=== PATIENT | male | born 1955 | race Caucasian/White ===

== ENCOUNTER 2017-03-27 15:41 | Emergency (ER) | payer BC ==
[2017-03-27] MEDS ORDERED: Aspirin Low Dose CHEW TAB* 81 MG PO ONE (16:32)
[2017-03-27 17:07] LABS: Hematocrit 40 % (42-52); Hemoglobin 13.5 g/dl (14.0-18.0); Mean Corpuscular HGB Conc 34 g/dl (31-36); Mean Corpuscular Hemoglobin 28 pg (27-31); Mean Corpuscular Volume 84 fL (80-94); Mean Platelet Volume 8 um3 (7.4-10.4); Red Blood Count 4.78 10^6/ul (4.0-5.4); Red Cell Distribution Width 14 % (10.5-15); White Blood Count 5.5 10^3/ul (3.5-10.8)
--- NOTE | 2017-03-27 17:08 | RAD ---
INDICATION: Chest pain. Pneumonia. COMPARISON: April 16, 2015 TECHNIQUE: An AP portable view obtained at 1650 hours is submitted. FINDINGS: Bones/Soft Tissues: There are no acute bony findings. Cardiomediastinal: The correct silhouette is mildly prominent. Lungs: There are no infiltrates. Pleura: There are no pleural effusions. Other: None IMPRESSION: MILDLY PROMINENT CARDIAC SILHOUETTE.
[2017-03-27 17:24] LABS: Albumin 4.4 g/dL (3.2-5.2); BUN/Creatinine Ratio 11.5 (8-20); Calcium 9.7 mg/dL (8.6-10.3); EGFR African American 102.4 (>60); EGFR Non-African American 79.6 (>60); Globulin 2.5 g/dL (2-4); Potassium 3.6 mmol/L (3.5-5.0); Total Bilirubin 0.6 mg/dL (0.2-1.0); Total Protein 6.9 g/dL (6.4-8.9)
[2017-03-27 17:25] LABS: Troponin I 0.01 ng/mL (<0.04)
--- NOTE | 2017-03-27 19:01 | ED ---
Allen Schaefer Angela, scribed for Jb Quinn MD on 03/27/17 at 1613 . HPI Chest Pain - HPI Summary HPI Summary: This pt is a 61 y/o male [facility] c/o chest discomfort x1-2 weeks, more present at 0800 today. He states his chest discomfort is subtle and today it felt more present. Pt reports it feels like it did in 2012 when he had 2 stents placed for a STEMI. Pt denies diaphoresis, SOB, cold, rhinorrhea, abd pain, LE pain. He denies tobacco use. Pt notes seeing Dr. Johnson every 6 months. Pt takes baby ASA everyday, metoprolol, lipitor, and diovan. - History of Current Complaint Chief Complaint: EDChestPainROMI Time Seen by Provider: 03/27/17 16:02 Hx Obtained From: Patient Onset/Duration: Started Days Ago Timing: Lasting Days Pain Intensity: 0 Chest Pain Location: Mid Sternal Chest Pain Radiates: No Associated Signs and Symptoms: Positive: Chest Pain - discomfort. Negative: Headaches, Numbness, Tingling, Weakness, Shortness of Breath, Syncope, Fever, Chills, Lightheadedness, Calf Pain/Swelling Related History: Similar Episode/Dx as: - 4 years ago when he had a STEMI - Allergy/Home Medications Allergies/Adverse Reactions: Allergies Allergy/AdvReac Type Severity Reaction Status Date / Time MARILY Inhibitors Allergy Coughing Verified 03/27/17 15:46 PMH/Surg Hx/FS Hx/Imm Hx Endocrine/Hematology History: Denies: Hx Anticoagulant Therapy, Hx Blood Disorders, Hx Blood Transfusions, Hx Bone Marrow Disease, Hx Diabetes, Hx Systemic Lupus Erythematosus, Hx Sickle Cell Disease, Hx Thyroid Disease, Hx Anemia, Hx Unexplained Bleeding, Other Endocrine/Hematological Disorders Cardiovascular History: Reports: Hx Angina - december 12 sensation in chest and biceps, non painful, Hx Angioplasty, Hx Coronary Artery Disease, Hx Hypercholesterolemia, Hx Hypertension - ON MEDS, Other Cardiovascular Problems/ Disorders - 2 CARDIAC STENTS 12/2012 Denies: Hx Aneurysm, Hx Auto Implanted Cardiovert Defib, Hx Cardiac Arrest, Hx Cardiomegaly, Hx Congenital Heart Disease, Hx Congestive Heart Failure, Hx Deep Vein Thrombosis, Hx Hypotension, Hx Myocardial Infarction, Hx Pacemaker/ICD , Hx Peripheral Vascular Disease, Hx Rheumatic Fever, Hx Syncope, Hx Valvular Heart Disease Respiratory History: Denies: Hx Asthma, Hx Chronic Bronchitis, Hx Chronic Obstructive Pulmonary Disease (COPD), Hx Cystic Fibrosis, Hx Lung Cancer, Hx Pleural Effusion, Hx Pneumonia, Hx Pulmonary Edema, Hx Pulmonary Embolism, Hx Seasonal Allergies, Hx Sleep Apnea, Other Respiratory Problems/Disorders GI History: Denies: Hx Cirrhosis, Hx Crohn's Disease, Hx Diverticulosis, Hx Gall Bladder Disease, Hx Gastroesophageal Reflux Disease, Hx Gastrointestinal Bleed, Hx Hiatal Hernia, Hx Irritable Bowel, Hx Jaundice, Hx Obstructive Bowel, Hx Ileostomy, Hx Pyloric Stenosis, Hx Ulcer, Other GI Disorders History: Denies: Hx Acute Renal Failure, Hx Benign Prostatic Hyperplasia, Hx Chronic Renal Failure, Hx Dialysis, Hx Kidney Infection, Hx Kidney Stones, Hx Renal Disease, Other Problems/Disorders Musculoskeletal History: Reports: Hx Arthritis, Hx Orthopedic Injury - left meniscus tear around 1999, Other Musculoskeletal History - CURRENT TEAR LEFT ACHILLES Denies: Hx Back Problems, Hx Bursitis, Hx Congenital Bone Abnormalities, Hx Fibromyalgia, Hx Gout, Hx Osteoporosis, Hx Scoliosis, Hx Tendonitis Sensory History: Denies: Hx Cataracts, Hx Contacts or Glasses, Hx Eye Injury, Hx Eye Prosthesis, Hx Glaucoma, Hx Macular Degeneration, Hx Vision Problem, Hx Deafness , Hx Hearing Aid, Hx Hearing Problem, Other Sensory Impairments Opthamlomology History: Denies: Hx Cataracts, Hx Contacts or Glasses, Hx Eye Injury, Hx Eye Prosthesis, Hx Glaucoma, Hx Macular Degeneration, Hx Vision Problem, Other Sensory Impairments Neurological History: Reports: Hx Migraine - HX OF Denies: Hx Dementia, Hx Developmental Delay, Hx Nerve Disease, Hx Seizures, Hx Spinal Cord Injury, Hx Transient Ischemic Attacks (TIA), Other Neuro Impairments/Disorders Psychiatric History: Reports: Hx Attention Deficit Hyperactivity Disorder - taking concerta PRN 10 years Denies: Hx Anxiety, Hx Eating Disorder, Hx Depression, Hx Panic Disorder, Hx Post Traumatic Stress Disorder, Hx Inpatient Treatment, Hx Community Mental Health Tx, Hx Schizophrenia, Hx Bipolar Disorder, Hx Suicide Attempt, Hx of Violent Episodes Against Others, Hx Substance Abuse, Other Psychiatric Issues/ Disorders - Surgical History Surgery Procedure, Year, and Place: cysts exc one from lip and one in scrotum in 20's. cardiac cath w/ stent placement X2 [facility] 2012. LEFT KNEE SCOPING 2003 [facility]. CARDIAC CATH 2014 NO STENT Hx Anesthesia Reactions: No Infectious Disease History: Denies: Hx Clostridium Difficile, Hx Hepatitis, Hx Human Immunodeficiency Virus (HIV), Hx Shingles, Hx Tuberculosis, Traveled Outside the [place] in Last 30 Days - Family History Known Family History: Positive: Cardiac Disease - Father: [place] at age 40, Hypertension - Social History Alcohol Use: Weekly Alcohol Amount: 1 drink Substance Use Type: Reports: None Smoking Status (MU): Never Smoked Tobacco Review of Systems Negative: Fever, Chills Eyes: Negative Negative: Sore Throat, Nasal Discharge Positive: Chest Pain - chest discomfort Negative: Shortness Of Breath Gastrointestinal: Negative Genitourinary: Negative Musculoskeletal: Negative Skin: Negative Negative: Headache, Weakness, Paresthesia, Numbness All Other Systems Reviewed And Are Negative: Yes Physical Exam - Summary Physical Exam Summary: The patient is well-nourished in no acute distress and in no acute pain. The skin is warm and skin color reflects adequate perfusion. Pt is a little diaphoretic. HEENT: The head is normocephalic and atraumatic. The pupils are equal and reactive. The conjunctivae are clear and without drainage. Nares are patent and without drainage. Mouth reveals moist mucous membranes and the throat is without erythema and exudate. The external ears are intact. The ear canals are patent and without drainage. The tympanic membranes are intact. Neck is supple with full range of motion and non-tender. Respiratory: Lungs are clear to auscultation and breath sounds are symmetrical and equal. There is no reproducible chest pain. Cardiovascular: Hear is regular rate and rhythm. There is no murmur or rub auscultated. There is no peripheral edema and pulses are symmetrical and equal. Abdomen: The abdomen is soft and non-tender. Musculoskeletal: There is no back pain noted. Extremities are non-tender with full range of motion. There is good capillary refill. There is no peripheral edema or calf tenderness elicited. Neurological: Patient is alert and oriented to person, place and time. The patient has symmetrical motor strength in all four extremities. Psychiatric: The patient has an appropriate affect and does not exhibit any anxiety or depression. Vital Signs On Initial Exam: Initial Vitals Temp Pulse Resp BP Pulse Ox 98.6 F 60 16 144/76 97 03/27/17 15:46 03/27/17 15:46 03/27/17 15:46 03/27/17 15:46 03/27/17 15:46 Diagnostics - Vital Signs Vital Signs Temp Pulse Resp BP Pulse Ox 03/27/17 15:46 98.6 F 60 16 144/76 97 - Laboratory Lab Results: Lab Results 03/27/17 03/27/17 03/27/17 Range/Units 16:58 16:58 16:58 WBC 5.5 (3.5-10.8) 10^3/ul RBC 4.78 (4.0-5.4) 10^6/ul Hgb 13.5 L (14.0-18.0) g/dl Hct 40 L (42-52) % MCV 84 (80-94) fL MCH 28 (27-31) pg MCHC 34 (31-36) g/dl RDW 14 (10.5-15) % Plt Count 220 (150-450) 10^3/ul MPV 8 (7.4-10.4) um3 Neut % (Auto) 62.7 (38-83) % Lymph % (Auto) 27.9 (25-47) % [place] % (Auto) 6.5 (1-9) % Eos % (Auto) 2.4 (0-6) % Baso % (Auto) 0.5 (0-2) % Absolute Neuts (auto) 3.4 (1.5-7.7) 10^3/ul Absolute Lymphs (auto) 1.5 (1.0-4.8) 10^3/ul Absolute Monos (auto) 0.4 (0-0.8) 10^3/ul Absolute Eos (auto) 0.1 (0-0.6) 10^3/ul Absolute Basos (auto) 0 (0-0.2) 10^3/ul Absolute Nucleated RBC 0.01 10^3/ul Nucleated RBC % 0.1 Sodium 137 (133-145) mmol/L Potassium 3.6 (3.5-5.0) mmol/L Chloride 104 (101-111) mmol/L Carbon Dioxide 26 (22-32) mmol/L Anion Gap 7 (2-11) mmol/L BUN 11 (6-24) mg/dL Creatinine 0.96 (0.67-1.17) mg/dL Est GFR ( Amer) 102.4 (>60) Est GFR (Non-Af Amer) 79.6 (>60) BUN/Creatinine Ratio 11.5 (8-20) Glucose 127 H (70-100) mg/dL Lactic Acid (0.5-2.0) mmol/L Calcium 9.7 (8.6-10.3) mg/dL Total Bilirubin 0.60 (0.2-1.0) mg/dL AST 20 (13-39) U/L ALT 17 (7-52) U/L Alkaline Phosphatase 51 (34-104) U/L Troponin I 0.01 (<0.04) ng/mL B-Natriuretic Peptide 16 ( - 100) pg/mL Total Protein 6.9 (6.4-8.9) g/dL Albumin 4.4 (3.2-5.2) g/dL Globulin 2.5 (2-4) g/dL Albumin/Globulin Ratio 1.8 (1-3) 03/27/17 Range/Units 16:58 WBC (3.5-10.8) 10^3/ul RBC (4.0-5.4) 10^6/ul Hgb (14.0-18.0) g/dl Hct (42-52) % MCV (80-94) fL MCH (27-31) pg MCHC (31-36) g/dl RDW (10.5-15) % Plt Count (150-450) 10^3/ul MPV (7.4-10.4) um3 Neut % (Auto) (38-83) % Lymph % (Auto) (25-47) % [place] % (Auto) (1-9) % Eos % (Auto) (0-6) % Baso % (Auto) (0-2) % Absolute Neuts (auto) (1.5-7.7) 10^3/ul Absolute Lymphs (auto) (1.0-4.8) 10^3/ul Absolute Monos (auto) (0-0.8) 10^3/ul Absolute Eos (auto) (0-0.6) 10^3/ul Absolute Basos (auto) (0-0.2) 10^3/ul Absolute Nucleated RBC 10^3/ul Nucleated RBC % Sodium (133-145) mmol/L Potassium (3.5-5.0) mmol/L Chloride (101-111) mmol/L Carbon Dioxide (22-32) mmol/L Anion Gap (2-11) mmol/L BUN (6-24) mg/dL Creatinine (0.67-1.17) mg/dL Est GFR ( Amer) (>60) Est GFR (Non-Af Amer) (>60) BUN/Creatinine Ratio (8-20) Glucose (70-100) mg/dL Lactic Acid 1.5 (0.5-2.0) mmol/L Calcium (8.6-10.3) mg/dL Total Bilirubin (0.2-1.0) mg/dL AST (13-39) U/L ALT (7-52) U/L Alkaline Phosphatase (34-104) U/L Troponin I (<0.04) ng/mL B-Natriuretic Peptide ( - 100) pg/mL Total Protein (6.4-8.9) g/dL Albumin (3.2-5.2) g/dL Globulin (2-4) g/dL Albumin/Globulin Ratio (1-3) Result Diagrams: 03/27/17 16:58 03/27/17 16:58 Lab Statement: Any lab studies that have been ordered have been reviewed, and results considered in the medical decision making process. - Radiology Chest XR Xray Interpretation: Positive (See Comments) - IMPRESSION: Mildly prominent cardiac silhouette. ED physician has reviewed this radiology report and agrees. Radiology Interpretation Completed By: Radiologist - EKG 1549 Cardiac Rate: Bradycardia EKG Rhythm: Sinus Rhythm EKG Interpretation: LVH. Normal axis. No ST elevation Re-Evaluation - Re-Evaluation First Eval Re-Evaluation Time: 17:56 Comment: I reviewed the XR results with the pt. Chest Pain Course/Dx - Course Assessment/Plan: Pt is a 61 y/o male presenting to the ED c/o chest discomfort x1-2 weeks, more present at 0800 today. Pt reports it feels like it did in 2012 when he had 2 stents put in. Labs, chest XR, EKG, and troponin were ordered. Glucose is 127, troponin is 0.01. Chest XR shows a mildly prominent cardiac silhouette. Pt will be discharged and is told to hold on metoprolol until tomorrow morning. Pt is scheduled for an outpatient stress test tomorrow. Elevated BP noted with dx of HTN in PMHx. - Chest Pain Differential Diagnosis/HQI/PQRI: Acute AK, ACS, Angina - Diagnoses Provider Diagnoses: Chest pain Discharge - Discharge Plan Condition: Stable Disposition: HOME Patient Education Materials: Chest Pain (ED) Referrals: Mack Evans MD [Primary Care Provider] - Additional Instructions: Please hold off on metoprolol until tomorrow morning. You have been scheduled for an outpatient stress test. The documentation as recorded by the Allen mendosa Angela accurately reflects the service I personally performed and the decisions made by , Jb Quinn MD.
[2017-03-27 19:25] VITALS: BP 138/76
== END 2017-03-27 19:25 | disposition home or self-care (01) ==
LOC: ED 15:41
DX: R07.9 Chest pain, unspecified (principal); I10 Essential (primary) hypertension; Z79.82 Long term (current) use of aspirin
CPT/HCPCS: 36415; 71010; 80053; 83605; 83880; 84484; 85025; 93005; 99284; A9270-GY

== ENCOUNTER 2019-07-21 07:28 | Day surgery (SDC) | payer BC ==
--- NOTE | 2019-07-16 20:36 | HP ---
PREOPERATIVE HISTORY AND PHYSICAL: DATE OF ADMISSION/SURGERY: 07/21/19 DATE OF OFFICE VISIT/ENCOUNTER: 07/01/19 ATTENDING SURGEON: Claudia Madison MD * (DICTATED BY ADELINA HERMAN) PROCEDURE: Right wrist carpal tunnel release, trigger release right long finger. HISTORY OF PRESENT ILLNESS: This is a 63-year-old male, who has had ongoing problems with triggering in the right long finger and numbness and tingling, pain caused by right carpal tunnel syndrome. He has failed conservative treatment including cortisone injections for the trigger finger and bracing for the carpal tunnel. He would like to proceed with surgical intervention for both of these problems. His division order analyst is Dr. Johnson and we will obtain clearance from his division order analyst prior to proceeding with surgery. PAST MEDICAL HISTORY: 1. Hypertension. 2. Hypercholesterolemia. 3. Coronary artery disease. PAST SURGICAL HISTORY: 1. Cardiac catheterization with 2 stents placed in 2012. 2. Achilles tendon repair on the left. 3. Left knee arthroscopy. MEDICATIONS: 1. Aspirin 81 mg daily. 2. Atorvastatin calcium 80 mg daily. 3. Concerta 45 mg p.r.n. 4. Fish oil 1000 units daily. 5. Losartan potassium 25 mg daily. 6. Metformin HCl 500 mg twice a day. 7. Metoprolol succinate ER 25 mg 1 tab in the morning, half tab at night. 8. Multivitamin Adult daily. ALLERGIES: MARILY INHIBITORS caused cough. FAMILY MEDICAL HISTORY: Heart disease. 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 He denies tobacco use and recreational drug use. He drinks alcohol on occasion. REVIEW OF SYSTEMS: Negative for general, cephalic, cardiovascular, respiratory , GI, , other musculoskeletal, integumentary, endocrine, neurologic, and hematologic symptoms. Infectious Disease: Negative for MRSA, hepatitis C, HIV. PHYSICAL EXAMINATION GENERAL: A well-developed, well-nourished 63-year-old male, in no acute distress. VITAL SIGNS: Height 5 feet 8 inches, weight 181 pounds. Pulse rate 60, blood pressure 128/78. HEENT: Normocephalic, atraumatic. Pupils are equal, round, and reactive to light and accommodation. Extraocular movements are intact. Throat is clear. NECK: Supple. No palpable lymph nodes. PULMONARY: Lungs are clear to auscultation bilaterally. No wheezes, rales, or rhonchi. CARDIOVASCULAR: Regular rate and rhythm. S1, S2. No murmurs, rubs, or gallops. No edema. ABDOMEN: Positive bowel sounds. Soft, nontender. NEUROLOGICAL: Alert and oriented x3. Cranial nerves II through XII are intact. MUSCULOSKELETAL: On exam of his right hand, he has no visible thenar wasting, mild weakness with thumb abduction. He has positive median nerve compression test, negative Tinel's at the wrist and at the elbow, tenderness to palpation at the A1 brennon of the long finger, and he has a bit of clicking with flexion of the finger, but no locking. Skin is intact. Sensation is intact to light touch. IMPRESSION: 1. Right wrist carpal tunnel syndrome. 2. Right long finger trigger finger. PLAN: The patient is scheduled to undergo a right wrist carpal tunnel release and a trigger release right long finger with Dr. Madison on 07/21/19. He will return to the office 10 days postop for followup and suture removal. A prescription for tramadol was e-scribed to the patient's pharmacy for postoperative pain management. ADELINA HERMAN [id number]/[facility] #: [id number] RAQUEL
[~2019-07-21 07:28] MED LIST: Buffered Lidocaine 1% SYRIN* 1 ML/SYRINGE INTRADERM ONE; Lactated Ringers 1000 ML Bag* 1,000 ML IV SCH
[2019-07-21] MEDS ORDERED: Lidocaine 1% INJ* 10 MG/ML 30 ML SDV ONE (07:41)
[2019-07-21] MEDS ORDERED: fentaNYL* 50 MCG/ML 2 ML VIAL (100 MCG VIAL) ONE (08:48)
[2019-07-21] MEDS ORDERED: Midazolam* 1 MG/ML 2 ML VIAL (2 MG) ONE (08:49)
[2019-07-21] MEDS ORDERED: Propofol* 10 MG/ML 20 ML BTL ONE (08:53)
[2019-07-21] MEDS ORDERED: Naloxone* 0.4 MG/ML 1 ML VIAL IV PRN (09:29)
[2019-07-21 09:55] VITALS: BP 124/75
--- NOTE | 2019-07-21 10:42 | OP ---
DATE OF OPERATION: 07/21/19 [facility] DATE OF : 55 SURGEON: Claudia Madison MD AIRCRAFT TIME CLERK: ADELINA Garrido ANESTHESIA: Local MAC. PRE-OP DIAGNOSES: Right long finger trigger finger and right carpal tunnel syndrome. POST-OP DIAGNOSES: Right long finger trigger finger and right carpal tunnel syndrome. OPERATIVE PROCEDURE: Right long finger trigger release and right carpal tunnel release. ESTIMATED BLOOD LOSS: Zero. TOURNIQUET TIME: About 15 minutes. INDICATION FOR PROCEDURE: Pablo is a 63-year-old man who has numbness and tingling in the median nerve distribution of his right hand as well as triggering and locking of the right middle finger. He has failed conservative treatment and presents for right carpal tunnel release and right middle finger trigger release. DESCRIPTION OF PROCEDURE: The patient was brought to the operating room and was given a sedation anesthetic and a local infiltration of 10 cc of 1% plain lidocaine in the palm of his right hand. The skin of his right hand and forearm was prepped and draped in the usual sterile fashion. The hand and forearm were exsanguinated and the tourniquet elevated to 250 mmHg. A transverse incision was made, centered over the A1 brennon of the middle finger and we dissected bluntly through the subcutaneous tissue down to the A1 brennon. The brennon was incised longitudinally, completely releasing the flexor tendons which were in good condition. The wound was irrigated and the skin edges were reapproximated with 4-0 nylon suture. Next, a longitudinal incision was made in the palm of the hand in line with the ring finger and we dissected through the subcutaneous tissue down to the transverse carpal ligament. The ligament was divided sharply with the knife and then more proximally with the scissors. The nerve was dissected free from the surrounding tissue and there was an area of moderate compression at the mid portion of the ligament. The wound was irrigated and the skin edges reapproximated with 4-0 nylon suture. The wounds were dressed with Xeroform, 4x4, Webril, and an Ramón wrap. The patient tolerated the procedure well and was brought to the recovery room in good condition. [id number]/[facility] #: [id number] MAR[facility] FARERI CHILDREN'S HOSPITALSamantha
== END 2019-07-21 10:02 | disposition home or self-care (01) ==
LOC: OREAST 07:28
PROVIDERS: ATTEND Orthopaedic Surgery
DX: G56.01 Carpal tunnel syndrome, right upper limb (principal); M65.331 Trigger finger, right middle finger; I10 Essential (primary) hypertension; E78.00 Pure hypercholesterolemia, unspecified; I25.10 Atherosclerotic heart disease of native coronary artery without angina pectoris; Z95.5 Presence of coronary angioplasty implant and graft; Z79.82 Long term (current) use of aspirin; E78.5 Hyperlipidemia, unspecified; F98.8 Other specified behavioral and emotional disorders with onset usually occurring in childhood and adolescence
CPT/HCPCS: J2250; J2704; J3010

== ENCOUNTER 2024-07-03 06:58 | Observation (INO) ==
[~2024-07-03 06:58] MED LIST changes: -Buffered Lidocaine 1% SYRIN* 1 ML/SYRINGE INTRADERM ONE; -Lactated Ringers 1000 ML Bag* 1,000 ML IV SCH; +NS 0.45% 1000 ml BAG 1,000 ML IV SCH; +Naloxone 0.4 mg VIAL 0.4 mg/ml 1 ml VIAL IV PRN; +Ondansetron 4 mg VIAL 2 MG/ML 2 ml VIAL IV PRN; +ROPIVACAINE 5 MG/ML 30 ML BTL (0.5%) ONE
[2024-07-03] MEDS: Buffered Lidocaine 1% SYRIN 1 ml INTRADERM ONE (07:30)
[2024-07-03 07:35] LABS: Rapid COVID-19 Molecular Undetected (Undetected)
[2024-07-03] MEDS ORDERED: Tranexamic Acid 1 GM/100ML BAG 2,000 MG/200 ML BAG IV ONE (07:38)
[2024-07-03] MEDS ORDERED: ceFAZolin 2 GM PREMIX 2 GM/50 ML BAG ONE (07:38)
[2024-07-03] MEDS ORDERED: Lidocaine 2% PF 5 ML VIAL ONE (07:50)
[2024-07-03] MEDS ORDERED: Propofol 10 MG/ML 20 ML BTL ONE (07:50)
[2024-07-03] MEDS ORDERED: Midazolam 2 mg/2 ml VIAL 1 mg/ml 2 ml VIAL (2 mg) ONE (07:55)
[2024-07-03] MEDS ORDERED: Phenylephrine IV 10 MG/ML 1 ml VIAL ONE (07:58)
[2024-07-03] MEDS ORDERED: Rocuronium 50 mg VIAL 10 mg/ml 5 ml VIAL (50 mg) ONE (08:02)
[2024-07-03] MEDS ORDERED: fentaNYL 250 mcg/5 ml 50 MCG/ML 5 ml VIAL (250 MCG) ONE (08:02)
[2024-07-03] MEDS ORDERED: fentaNYL 100 mcg/2 ml 50 MCG/ML VIAL ONE ×2 (08:36→11:46)
[2024-07-03] MEDS ORDERED: KETAMINE HCL 10 MG/ML 20 ml VIAL (200 MG) ONE (08:41)
[2024-07-03] MEDS ORDERED: Glycopyrrolate IV 0.2 MG/ML 1 ML VIAL ONE (08:48)
[2024-07-03] MEDS ORDERED: Dexamethasone IV 4 MG/ML VIAL 1 ml VIAL ONE (09:29)
[2024-07-03] MEDS ORDERED: Ondansetron 4 mg VIAL 2 MG/ML 2 ml VIAL ONE (09:29)
[2024-07-03] MEDS ORDERED: Magnesium Hydroxide LIQ 30 ML UDC PO PRN (09:43)
[2024-07-03] MEDS ORDERED: Ondansetron ODT 4 mg TAB 4 MG TAB PO PRN (09:43)
[2024-07-03] MEDS ORDERED: Calcium Carb (TUMS) 500 mg CHEW TAB PO PRN (09:43)
[2024-07-03] MEDS ORDERED: Morphine 2 MG/ML SYRINGE IV PRN (09:43)
[2024-07-03] MEDS ORDERED: Lactulose 30 ml UDC PO PRN (09:43)
[2024-07-03] MEDS ORDERED: Ondansetron 4 mg VIAL 2 MG/ML 2 ml VIAL IV PRN (09:43)
[2024-07-03] MEDS ORDERED: Esmolol 10 MG/ML 10 ML (100 mg) IV ONE (10:13)
[2024-07-03] MEDS ORDERED: Metoprolol Tartrate 5 mg VIAL 5 ml VIAL (1 mg/ml) ONE (10:31)
[2024-07-03] MEDS: Acetaminophen IV 1 GM/100ML 1,000 MG/100 ML BAG IV ONE (11:07)
[2024-07-03] MEDS: Lactated Ringers 1000 ml BAG 1,000 ML IV SCH ×2 (11:08→12:21)
[2024-07-03] MEDS: fentaNYL 100 mcg/2 ml 50 MCG/ML VIAL IV PRN (11:47)
[2024-07-03 15:00] VITALS: BP 127/68
[2024-07-03] MEDS: ceFAZolin 2 GM PREMIX 2 GM/50 ML BAG IV SCH (16:27)
[2024-07-03] MEDS ORDERED: Magnesium Hydroxide LIQ 30 ML UDC PO SCH (21:00)
[2024-07-04] MEDS ORDERED: Vitamin THERAPEUTIC TAB PO SCH (09:00)
== END 2024-07-03 17:50 | disposition home or self-care (01) ==
LOC: SSU 06:58 → OR 06:58
PROVIDERS: ADMIT Orthopaedic Surgery Adult Reconstructive Orthopaedic Surgery; ATTEND Orthopaedic Surgery Adult Reconstructive Orthopaedic Surgery